=== PATIENT | female | born 1935 | race Caucasian/White ===

== ENCOUNTER → 2024-03-10 | Outpatient (CLI) | payer MEDICARE, OTHER ==
[~2024-03-10] VITALS: Ht 152.4 cm; Wt 68.0 kg
[~2024-03-10] MED LIST: ALBU18HF12 IH; FAMO20 PO; FURO20 PO; METO25 PO; ROSU10TA72 PO
[2024-03-10 09:59] VITALS: BP 127/76; PULSE 70; RESP 16; TEMP 98.4; O2SAT 94
== END | disposition home or self-care (01) ==
LOC: SRCNTR 09:39
PROVIDERS: ATTEND Internal Medicine
DX: J44.9 Chronic obstructive pulmonary disease, unspecified (principal); I11.0 Hypertensive heart disease with heart failure; I50.32 Chronic diastolic (congestive) heart failure; I49.5 Sick sinus syndrome; Z79.899 Other long term (current) drug therapy
CPT/HCPCS: G0463; Z7500

== ENCOUNTER → 2024-04-24 | Outpatient (CLI) | payer MEDICARE, OTHER ==
[~2024-04-24] VITALS: Ht 172.7 cm; Wt 69.0 kg
[~2024-04-24] MED LIST changes: +ALPR-705 PO
[2024-04-24 10:07] VITALS: BP 125/72; PULSE 63; RESP 16; TEMP 98.1; O2SAT 94
== END | disposition home or self-care (01) ==
LOC: SRCNTR 09:43
PROVIDERS: ATTEND Internal Medicine
DX: J44.9 Chronic obstructive pulmonary disease, unspecified (principal); I50.9 Heart failure, unspecified; I49.5 Sick sinus syndrome; Z95.0 Presence of cardiac pacemaker; Z98.890 Other specified postprocedural states
CPT/HCPCS: G0463